=== PATIENT | female | born 1970 | race African-American/Black ===

== ENCOUNTER → 2016-10-20 | Outpatient (CLI) | payer OTHER ==
--- NOTE | 2016-10-26 13:46 | REPMRS ---
Patient History The patient states she had a clinical breast exam in 2016.Family history of ovarian cancer in maternal grandmother at age 50 and prostate cancer in paternal uncle. Indicated problem(s): pain in both breasts. Digital Mammo Diagnostic Bilateral: October 20, 2016 - Exam #: [id number] Bilateral CC and MLO view(s) were taken. Technologist: Ashley Leon, Technologist Prior study comparison: June 04, 1998, bilateral screening mammogram, [facility]. FINDINGS: There are scattered fibroglandular densities. There is a moderate amount of residual fibroglandular tissue which is fairly symmetric. There is no interval development of dominant mass, architectural distortion, or clustered microcalcification typical of malignancy. There has been no change in the appearance of the mammogram from the prior studies. ASSESSMENT: BI-RADS/ACR category 1 mammogram. Negative. Recommendation Routine screening mammogram of both breasts in 1 year (for women over age 40). This mammogram was interpreted with the aid of an FDA-approved computer-aided dectection system. Electronically Signed By: Azar Sandy MD 10/26/16 [id number]
== END ==
LOC: M RAD 10:01
PROVIDERS: ATTEND Student in an Organized Health Care Education/Training Program
DX: Z12.31 Encounter for screening mammogram for malignant neoplasm of breast (principal)

== ENCOUNTER → 2016-11-30 | Outpatient (REF) | payer OTHER ==
[2016-11-30 20:52] LABS: REASON FOR REVIEW COMPREHENSIVE REVIEW
[2016-12-01 11:18] LABS: HEPATITIS B SURFACE ANTIBODY POSITIVE (POSITIVE)
[2016-12-01 14:26] LABS: CONTROL LINE HPYORI INT CTR LINE PRESENT
== END ==
LOC: M LAB REF 17:56
PROVIDERS: ATTEND Internal Medicine Medical Oncology
DX: D75.1 Secondary polycythemia (principal)

== ENCOUNTER → 2017-01-12 | Outpatient (REF) | payer OTHER | LOC: M LAB REF 15:36 | PROVIDERS: ATTEND Internal Medicine Endocrinology, Diabetes & Metabolism | DX: E04.1 Nontoxic single thyroid nodule (principal) ==